=== PATIENT | female | born 1970 | race Asian ===

== ENCOUNTER → 2019-07-26 14:37 | Outpatient (CLI) | payer OTHER, SELFPAY ==
--- NOTE | ~2019-07-26 | XR_ITS ---
EXAMINATION: XR knee LT 3V DATE: 07/26/2019 14:47 INDICATION: Left knee pain. TECHNIQUE: 3 views of left knee were obtained. COMPARISON: None. FINDINGS: There is lateral subluxation of patella. No fracture. There is moderate osteoarthritis of p atellofemoral compartment and mild osteoarthritis of medial and lateral compartments. No knee joint e ffusion. IMPRESSION: 1. Moderate left knee osteoarthritis. Reviewed, dictated and finalized at location A.
== END ==
PROVIDERS: PCP Family Medicine; Visit Provider Physician Assistant
DX: M25.569 Pain in unspecified knee (principal); M17.12 Unilateral primary osteoarthritis, left knee
CPT/HCPCS: 73562

== ENCOUNTER 2019-08-01 13:07 | Outpatient (CLI) | payer OTHER, SELFPAY ==
--- NOTE | ~2019-08-01 | MM_ITS ---
EXAMINATION: MM screening violet BI w alma HISTORY: Screening mammogram TECHNIQUE: Craniocaudal and mediolateral oblique 3-D tomosynthesis images were obtained and synthetic 2-D images were generated. CAD analysis was submitted and interpreted. COMPARISON: Comparison to multiple prior studies sequentially, with oldest reviewed study dated 10/2013. BREAST PARENCHYMAL COMPOSITION: There are scattered areas of fibroglandular density. FINDINGS: Mass in the lower inner quadrant of the left breast is unchanged. There is no evidence of s uspicious mass, calcification, or architectural distortion to suggest malignancy in either breast. Th ere has been no suspicious interval change. IMPRESSION: 1. No mammographic evidence of malignancy. 2. Recommend routine screening mammography in one year. BI-RADS Category 2: Benign finding(s). Reviewed, dictated and finalized at location A.
== END 2019-08-01 13:08 | disposition home or self-care (01) ==
LOC: ANHIMG 13:12
PROVIDERS: PCP Family Medicine; Visit Provider Obstetrics & Gynecology Gynecology
DX: Z12.31 Encounter for screening mammogram for malignant neoplasm of breast (principal)
CPT/HCPCS: 77063; 77067

== ENCOUNTER 2020-08-02 08:04 | Outpatient (CLI) | payer OTHER, SELFPAY ==
--- NOTE | ~2020-08-02 | MM_ITS ---
EXAMINATION: MM screening violet BI w alma HISTORY: Screening TECHNIQUE: Craniocaudal and mediolateral oblique 3-D tomosynthesis images were obtained and synthetic 2-D images were generated. CAD analysis was submitted and interpreted. COMPARISON: Comparison to multiple prior studies sequentially, with oldest reviewed study dated 06/26. BREAST PARENCHYMAL COMPOSITION: There are scattered areas of fibroglandular density. FINDINGS: Stable benign-appearing left breast mass. There is no evidence of suspicious mass, calcific ation, or architectural distortion to suggest malignancy in either breast. There has been no suspicio us interval change. IMPRESSION: 1. No mammographic evidence of malignancy. 2. Recommend routine screening mammography in one year. BI-RADS Category 2: Benign finding(s). Reviewed, dictated and finalized at location A.
== END 2020-08-02 08:05 | disposition home or self-care (01) ==
LOC: ANHIMG 08:06
PROVIDERS: PCP Family Medicine; Visit Provider Obstetrics & Gynecology Gynecology
DX: Z12.31 Encounter for screening mammogram for malignant neoplasm of breast (principal)
CPT/HCPCS: 77063; 77067

== ENCOUNTER 2021-08-26 13:30 | Outpatient (CLI) | payer OTHER, SELFPAY ==
--- NOTE | ~2021-08-26 | MM_ITS ---
EXAMINATION: MM screening violet BI w alma HISTORY: Screening mammogram TECHNIQUE: Craniocaudal and mediolateral oblique 3-D tomosynthesis images were obtained and synthetic 2-D images were generated. CAD analysis was submitted and interpreted. COMPARISON: 08/02/2020, 08/01/2019, 07/25/2018 bilateral screening mammogram examinations BREAST PARENCHYMAL COMPOSITION: There are scattered areas of fibroglandular density. FINDINGS: Stable circumscribed up to 10.7 mm opacity with some calcifications in the posterior inner mid left breast, likely a partially calcified fibroadenoma, not significantly changed in size since . There is no evidence of suspicious mass, calcification, or architectural distortion to sugg est malignancy in either breast. There has been no suspicious interval change. IMPRESSION: 1. No mammographic evidence of malignancy. 2. Recommend routine screening mammography in one year. BI-RADS Category 2: Benign finding(s). Reviewed, dictated and finalized at location A.
== END 2021-08-26 13:31 | disposition home or self-care (01) ==
LOC: ANHIMG 13:32
PROVIDERS: PCP Family Medicine; Visit Provider Obstetrics & Gynecology Gynecology
DX: Z12.31 Encounter for screening mammogram for malignant neoplasm of breast (principal)
CPT/HCPCS: 77063; 77067

== ENCOUNTER 2022-09-29 09:05 | Outpatient (CLI) | payer OTHER, SELFPAY ==
--- NOTE | ~2022-09-29 | MM_ITS ---
EXAMINATION: MM screening violet BI w alma HISTORY: Screening mammogram, family history of breast cancer in her mother. TECHNIQUE: Craniocaudal and mediolateral oblique 3-D tomosynthesis images were obtained and synthetic 2-D images were generated. CAD analysis was submitted and interpreted. COMPARISON: 08/26/2021, 08/02/2020, 08/01/2019 BREAST PARENCHYMAL COMPOSITION: There are scattered areas of fibroglandular density. FINDINGS: A stable partially calcified mass of the inner left breast is consistent with a benign find ing. No suspicious mass, calcification, or architectural distortion are identified in either breast t o suggest malignancy. There has been no suspicious interval change. IMPRESSION: 1. No mammographic evidence of malignancy. 2. Recommend routine screening mammography in one year. BI-RADS Category 2: Benign finding(s). Reviewed, dictated and finalized at location A.
== END 2022-09-29 09:06 | disposition home or self-care (01) ==
PROVIDERS: PCP Family Medicine; Visit Provider Obstetrics & Gynecology Gynecology
DX: Z12.31 Encounter for screening mammogram for malignant neoplasm of breast (principal)
CPT/HCPCS: 77063; 77067

== ENCOUNTER 2023-07-05 00:17 | Day surgery (SDC) | payer OTHER, SELFPAY ==
[2023-06-29 14:13] VITALS: BMI 30.8
--- NOTE | 2023-06-29 14:50 | SUR.PREOP ---
Report to the Outpatient Waiting Room, entrance under the green pavilion located off [facility], at time 0930 on date 07/05/23. Planned Procedure Time: 1130. Time changes happen often and if your time is changed the preop area will call you the afternoon before. - You and your visitor will be asked to self-screen and do not enter if you have any COVID symptoms. - A mask is optional within the hospital at this time. Patients may have clear liquids (water, carbonated beverages, clear teas, apple juice) until 3 hours prior to surgery with a maximum of 20 ounces. - No food from midnight until time of surgery Take the following medications with a SIP of water the morning of surgery: N/A DO NOT STOP ANY OF YOUR OTHER PRESCRIPTION MEDICATIONS PRIOR TO SURGERY ?EXCEPT THE FOLLOWING Medications to discontinue per physician STOP ALL VIATAMINS AND SUPPLIMENTS 3 DAYS PRIOR TO PROCEDURE Date to take last dose 07/01/23 Please no make-up, nail yoruba, hairspray, perfume, deodorant, or body powder the day of surgery. No jewelry (including any body piercings) or valuables the day of surgery, leave them at home. Please take a shower or bath the night before, or the morning of, surgery with an antibacterial soap. Wear comfortable, loose fitting clothing. Children are encouraged to wear pajamas. - Jewelry must be removed prior to entering the operating room. Rings and piercings that are not removed may be cut off. - The hospital will not accept responsibility for valuables. - Please leave all valuables, including medications, at home the day of surgery. If you are going home after surgery, a licensed haul driver must drive you home. - NO public transportation without another adult if you receive anesthesia. - We recommend that an adult stay with you for 24 hours following discharge. - We also recommend that you do not drive, make important decision, drink alcoholic beverages, or take any drugs that were not prescribed by your health care provider for at least 24 hours after your discharge time. Follow any additional instructions given to you from your surgeon. If you or anyone in your household have experienced Covid symptoms in the past week, please notify your surgeon or the nurse liaison at the phone number below for possible testing. Telephone instructions given to MARGOTH HERNANDEZ and asked if any additional questions and then verbalized understanding. Patient advised to call surgeon office or pre surgery nurse liaison [phone] if any additional questions.
--- NOTE | 2023-07-05 08:10 | P.HP_ITS ---
History of Present Illness History of Present Illness Consent: Risks, benefits, and alternatives have been discussed and questions answered. Patient agrees to proceed with procedure. Chief complaint: post menopausal bleeding Narrative: Juana Cornejo is a 53 year old female with an episode postmenopausal bleeding. Options were discussed with the patient and she elected to proceed with hysteroscopy and declined ultrasound. Risks of infection, bleeding, perforat ion, and possible pathology are discussed. Patient voices understanding and agrees to proceed Review of Systems Review of Systems: not repeated day of surgery; patient states no changes in status PMFSH Past Medical History Medical History (Updated 07/05/23 @ 08:13 by Alison Rodríguez MD) (normal spontaneous vaginal delivery) x2 Surgical History Surgical History (Updated 07/05/23 @ 08:12 by Alison Rodríguez MD) History of D&C D and E for 14 week demise Family History Family History Mother Breast cancer Hypertension Father Hypertension Grandparent Hypertension Breast cancer Social History Social History Smoking status: Never smoker Second hand tobacco smoke exposure: No Alcohol intake: never Substance use: never Substance use type: does not use Living arrangements: with family Spiritual care concerns: No Agree to blood products: Yes Meds Home Medications and Allergies Home Medications Medication Instructions Recorded Confirmed Type cholecalciferol (vitamin D3) 125 125 mcg PO DAILY 11/28/20 06/29/23 History mcg (5,000 unit) capsule Allergies Allergy/AdvReac Type Severity Reaction Status Date / Time alcohol Allergy Unknown Rash Verified 06/29/23 15:11 ALCOHOL, YAMS, DUCK ,CRAB Allergy Unknown Itching Uncoded 06/29/23 15:11 Crab Allergy Unknown Unknown Uncoded 06/29/23 15:11 Exam Const: General: healthy appearing and alert Orientation/consciousness: patient oriented x3 Resp: Effort & Inspection: normal respiratory effort : External Female Exam: normal external appearance Speculum Exam - Vagina: normal appearance of the vagina and normal vaginal discharge Speculum Exam - Cervix: normal appearance of the cervix Bimanual exam- vagina & uterus: uterine size normal and consistency normal Bimanual Exam- Adnexa, other: normal adnexae and No adnexal tenderness Neuro: General: patient oriented x3 Assessment and Plan Assessment and plan (1) Post-menopausal bleeding: Code(s): N95.0 - Postmenopausal bleeding Status: Acute Assessment and Plan: plan to proceed with D&C hysteroscopy
--- NOTE | 2023-07-05 08:10 | WPDHPUPDATE1 ---
History and Physical Update Update Date/Time: 07/05/23 08:10 History and Physical has been reviewed, including an updated exam of the patient. There are NO changes in the patient's condition. Risks, benefits, and alternatives have been discussed and questions answered. Patient agrees to proceed with procedure.
[2023-07-05 09:04] VITALS: BP 148/97; PULSE 73; RESP 16; TEMP 36.9; O2SAT 98
[2023-07-05] MEDS: ACETAMINOPHEN 500 MG TABLET 1000 MG PO (09:14)
[2023-07-05] MEDS: LACTATED RINGERS 1,000 ML 30 ML IV CONT (09:24)
--- NOTE | 2023-07-05 09:40 | P.PNAN_ITS ---
Anes - Initial Pre Proc Eval Procedure: Operation Date: 07/05/23 10:45 Proposed Procedures p Hysteroscopy Dilation and Curettage - Alison Rodríguez MD Date/Time: 07/05/23 09:40 Surgeon: Alison Rodríguez MD Pre Op Diagnosis: post menopausal bleeding Patient Data Age: 53 Gender: F Height: 1.7 m Weight: 86.2 kg Last Vital Signs Temp 36.9 C 07/05/23 09:04 Pulse 73 07/05/23 09:04 Resp 16 07/05/23 09:04 BP 148/97 H 07/05/23 09:04 Pulse Ox 98 07/05/23 09:04 O2 Del Method Room Air 07/05/23 09:04 Allergies Allergy/AdvReac Type Severity Reaction Status Date / Time alcohol Allergy Unknown Rash Verified 07/05/23 09:04 ALCOHOL, YAMS, DUCK ,CRAB Allergy Unknown Itching Uncoded 07/05/23 09:04 Crab Allergy Unknown Unknown Uncoded 07/05/23 09:04 Home Medications Medication Instructions Recorded Confirmed Type cholecalciferol (vitamin D3) 125 125 mcg PO DAILY 11/28/20 06/29/23 History mcg (5,000 unit) capsule Patient hx anesthesia problems: none Family hx anesthesia problems: none Results Review: All pre-operative results and documents have been reviewed as part of the pre- operative evaluation. PMFSH Past Medical History Medical History (normal spontaneous vaginal delivery) x2 Surgical History Surgical History History of D&C D and E for 14 week demise Family History Family History Mother Breast cancer Hypertension Father Hypertension Grandparent Hypertension Breast cancer Social History Social History Smoking status: Never smoker Second hand tobacco smoke exposure: No Alcohol intake: never Substance use: never Substance use type: does not use Living arrangements: with family Spiritual care concerns: No Agree to blood products: Yes Anes - Eval Final PreProcedure Day of Procedure 07/05/23 09:41 Patient weight: overweight Heart: regular rate and rhythm Lungs: clear to auscultation Airway: Mallampati scale class II Neurological: alert and oriented Last oral intake: >/= 8 hours ASA classification: II Emergent: no Anesthetic plan: proceed Anesthesia type and monitoring: general GIVS and standard monitoring Results Review: All pre-operative results and documents have been reviewed as part of the pre- operative evaluation. Informed Consent: The patient's anesthetic plan and its attendant risks and benefits were discussed with the patient/family/POA. Questions were solicited and answers provided to the satisfaction of the patient/family/POA.
[2023-07-05 10:31] VITALS: BP 120/70; PULSE 69; RESP 12; O2SAT 100
--- NOTE | 2023-07-05 10:39 | P.OP_ITS ---
Procedure Note - Detailed Date of Procedure 07/05/23 Pre-op Diagnosis post menopausal bleeding Post-op Diagnosis Same Procedure Performed D&C hysteroscopy Surgeon Alison Rodríguez MD Anesthesia MAC Findings the uterus sounds to 8cm and appears grossly atrophic Description of Procedure The patient is taken to the operating room and placed under anesthesia in the dorsal lithotomy position. She was prepped and draped in the usual sterile fashion. [place] speculum was placed in the vagina and the cervix grasped on the anterior lip with a tenaculum. The uterus is sounded to 8cm and noted to be retroverted. The diagnostic hysteroscope was placed and with no abnormalities noted it is removed. The OO sharp curette is placed and the uterus sharply curetted until a good uterine cry was noted in all areas. Instruments are removed. The patient was awakened from anesthesia and taken to recovery in stable condition. Sponge, needle, and instrument counts are correct per the OR staff. Estimated Blood Loss 5 Drains No Packing No Pathology Yes ( Endometrial curettings) Complications No immediate complications Condition Stable Disposition PACU
[2023-07-05 11:00] VITALS: BP 123/80; PULSE 68; O2SAT 98
[2023-07-05 11:30] VITALS: BP 133/79; PULSE 68; RESP 20
[2023-07-05 11:50] VITALS: BP 132/80; PULSE 63; RESP 20
== END 2023-07-05 12:00 | disposition home or self-care (01) ==
PROVIDERS: PCP Family Medicine; Visit Provider Obstetrics & Gynecology Gynecology
PROC: 0U5B8ZZ Destruction of Endometrium, Via Natural or Artificial Opening Endoscopic (ICD-10-PCS; CPT 58563; principal; 2023-07-05 10:45)
DX: N95.0 Postmenopausal bleeding (principal)
CPT/HCPCS: 58558; 88305; A9270; J2250; J2704; J3010; J7120

== ENCOUNTER 2023-11-25 09:58 | Outpatient (CLI) | payer OTHER, SELFPAY ==
--- NOTE | ~2023-11-25 | MM_ITS ---
EXAMINATION: MM screening violet BI w alma HISTORY: Screening TECHNIQUE: Craniocaudal and mediolateral oblique 3-D tomosynthesis images were obtained and synthetic 2-D images were generated. CAD analysis was submitted and interpreted. COMPARISON: Comparison to multiple prior studies sequentially, with oldest reviewed study dated 12/2017. BREAST PARENCHYMAL COMPOSITION: Not dense: There are scattered areas of fibroglandular density. FINDINGS: There is no evidence of suspicious mass, calcification, or architectural distortion to sugg est malignancy in either breast. There has been no suspicious interval change. IMPRESSION: 1. No mammographic evidence of malignancy. 2. Recommend routine screening mammography in one year. BI-RADS Category 1: Negative Reviewed, dictated and finalized at location B.
== END 2023-11-25 09:59 | disposition home or self-care (01) ==
LOC: ANHIMG 09:59
PROVIDERS: PCP Family Medicine; Visit Provider Obstetrics & Gynecology Gynecology
DX: Z12.31 Encounter for screening mammogram for malignant neoplasm of breast (principal)
CPT/HCPCS: 77063; 77067

== ENCOUNTER 2023-12-22 11:51 | Outpatient (CLI) | payer OTHER, SELFPAY ==
--- NOTE | ~2023-12-22 | DEXA_ITS ---
Bone Density Report Name: MARGOTH HERNANDEZ Age: 53 Sex: Female Ethnicity: White Date of : 1970 Indication: postmenopausal; screening for osteoporosis; prior fracture; Referring Provider: MAYANK MARTINEZ Study: Bone densitometry was performed. Exam Date: December 22, 2023 Accession number: [id number] Bone Density: Region BMD T-score Z-score Classification AP Spine(L1-L4) 1.255 1.9 2.8 Normal Femoral Neck (Left) 0.867 0.2 1.1 Normal Total Hip (Left) 1.051 0.9 1.5 Normal Femoral Neck (Right) 0.873 0.2 1.1 Normal Total Hip (Right) 1.087 1.2 1.8 Normal Total Hip Mean 1.069 1.1 1.7 Normal World Health Organization criteria for BMD impression classify patients as: Normal (T-score at or above -1.0), Osteopenia (T-score between -1.0 and -2.5), or Osteoporosis (T-score at or below -2.5). 10-year Fracture Risk: FRAX not reported because: All T-scores for Spine Total, Hip Total, Femoral Neck at or above -1.0 Clinical Information Provided by Patient: Has had a low trauma fracture Patient maximum height was 67.0 No regular weight bearing exercise Onset of menses at age 13 Number of children 2 Impression: The patient has normal bone mass. The patient has risk factors, including: previous fracture. Discussion: BONE DENSITY IS ABOVE THE MINIMUM DESIRABLE LEVEL AT ALL SKELETAL SITES TESTED. This patient?s bone mineral density is above the minimum desirable level (T-score -1.0 or better) at all sites measured. The patient should follow a healthful lifestyle (good nutrition with adequate calcium and vitamin D, and appropriate weight-bearing exercise). Follow-Up: Consider repeating this study in 5 years or sooner if there is some new clinical indication. Reported by: SHERYL on 12/22/2023 12:22:00 PM. Reviewed, dictated and finalized at location ASy MARCANO
== END 2023-12-22 11:52 | disposition home or self-care (01) ==
PROVIDERS: PCP Family Medicine; Visit Provider Obstetrics & Gynecology Gynecology
DX: Z78.0 Asymptomatic menopausal state (principal)
CPT/HCPCS: 77080

== ENCOUNTER 2025-01-01 14:07 | Outpatient (CLI) | payer OTHER, SELFPAY ==
--- NOTE | ~2025-01-01 | MM_ITS ---
EXAMINATION: MM screening violet BI w alma HISTORY: Screening mammogram, family history of breast cancer in her mother. TECHNIQUE: Craniocaudal and mediolateral oblique 3-D tomosynthesis images were obtained and synthetic 2-D images were generated. CAD analysis was submitted and interpreted. COMPARISON: 11/25/2023, 09/29/2022, 08/26/2021 BREAST PARENCHYMAL COMPOSITION:Not Dense. There are scattered areas of fibroglandular density. FINDINGS: No suspicious mass, calcification, or architectural distortion are identified in either tulio ast to suggest malignancy. There has been no suspicious interval change. IMPRESSION: No mammographic evidence of malignancy. Recommend routine screening mammography in one year. BI-RADS Category 1: Negative Reviewed, dictated and finalized at location .
--- OUTSIDE RECORDS SUMMARY | 2025-01-01 15:12 | XMS_ITS | Clinical Summary ---
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 Role Phone April Swan MD Primary Care Provider [phone] Allergies No known active allergies Medications vitamin D3-vitamin K2 25 mcg (1,000 unit)-90 mcg tablet,disinteg rating Take by mouth Active progesterone (PROMETRIUM) 100 mg capsule Take 1 capsule (100 mg total) by mouth nightly 08/20/2024 Active Active Problems No known active problems Encounters Date Type Department Care Team Description 10/18/2024 8:00 AM CDT Office Visit [facility] Rheumatology [address] [place] [address] Medicine 5th [place] [address] [place] [address] Tracy Melvin MD Positive JUAN (antinuclear antibody) (Primary Dx); Hair loss; Arthralgia, unspecified joint from Last 3 Months Social History Tobacco Use Types Packs/Day Years Used Date Smoking Tobacco: Never Passive Smoke Exposure: Never Comments Unknown Sex and Gender Information Value Date Recorded Sex Assigned at Not on file Legal Sex Female 12:47 PM CDT Gender Identity Not on file Sexual Orientation Not on file Obstetrics History Last Filed Vital Signs Vital Sign Reading Time Taken Comments Blood Pressure 143/97 10/18/2024 8:07 AM CDT Pulse 73 10/18/2024 8:07 AM CDT Temperature 36.9 C (98.5 F) 10/18/2024 8:07 AM CDT Respiratory Rate 20 05/28/2023 8:09 AM MRI TECH Oxygen Saturation 97% 05/28/2023 8:09 AM MRI TECH Inhaled Oxygen Concentration - - Weight 85.3 kg (188 lb) 10/18/2024 8:07 AM CDT Height 170.2 cm (5' 7) 10/18/2024 8:07 AM CDT Body Mass Index 29.44 10/18/2024 8:07 AM CDT Plan of Treatment Health Maintenance Due Date Last Done Comments Breast Cancer Screening-Mammogram 1970 Cervical Cancer Screening 1971 Colon Cancer Screening-Colonoscopy 1971 Depression Screening 1971 Hepatitis C Screening 1971 DTaP/Tdap/Td Vaccine (1 - Tdap) 1982 Hepatitis B Screening 1989 Regular Well Visit/Exam 18-64 1989 Zoster Vaccine (1 of 2) 2021 Covid-19 Vaccine (4 - 2023-2 5 season) 2024 05/25/2021, 09/08/2020, 08/17/2020 Influenza Vaccine (#1) 2025 05/04/2023 Pneumococcal vaccine <65 Aged Out No longer eligible based on patient's age to complete this topic Insurance [facility] [address] [place] [address] [facility] [id number] Member Subscriber Plan / Payer (Ef fective 2021-Present) Name:Juana Cornejo Member ID:[id number] Relation to Subscriber:Self Name:Juana Cornejo Subscriber ID:[id number] Payer ID:[id number] Type:[employer] HMO/PPO Address: [employer] CLAIMS [address] [place] [id number] [place] [address] FORMERLY [facility], [facility] [id number] Member Subscriber Plan / Payer ( fective 2020-Present) Name:Juana Cornejo Member ID:[id number] Relation to Subscriber:Self Name:Juana Cornejo Subscriber ID:[id number] Payer ID:[id number] Type:[employer] HMO/PPO Address: [employer] CLAIMS [address] [place] [id number] Care Teams Cement Finishing Supervisor Relationship Specialty Start Date End Date April Swan MD PCP - General Family Medicine 12/29/21
--- OUTSIDE RECORDS SUMMARY | 2025-01-01 15:12 | XMS_ITS | Clinical Summary ---
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 Gender Identity Not on file Sexual Orientation Not on file Plan of Treatment Health Maintenance Due Date Last Done Comments DTAP/TDAP/TD VACCINES (1 - Tdap) 1990 HEPATITIS B VACCINES (1 of 3 - 19+ 3-dose series) 01/15 HPV/Cotest (21-29) 01/30/1992 CERVICAL CANCER SCREENING 2001 HPV/Cotest (30-65) 2001 PAP SMEAR 2001 BREAST CANCER SCREENING 2011 COLORECTAL SCREENING 01/30/2016 Colorectal Cancer Screening 01/30/2016 FIT-DNA Q 3 years 01/30/2016 FIT/FOBT Q 1 year 01/30/2016 Flex Sig/CT Colonography Q 5 years 01/30/2016 ZOSTER VACCINE (1 of 2) 2021 INFLUENZA VACCINE (#1) 2024 05/04/2023 Insurance RX [facility] [employer]
--- OUTSIDE RECORDS SUMMARY | 2025-01-01 15:12 | XMS_ITS | Clinical Summary ---
Author Organization [facility] Address [address] [place] [address] Care Team Providers Care Car Repairer Name Role Phone Unavailable Primary Care Provider Unavailabl e Source Comments [facility],non-owned Affiliates and Associated Physician Practices is amultiple site organization consisting of ambulatory clinics and hospital sitesin [place], [place], [place] and [place]. This disclosure is being madepursuant to the Care Everywhere program and may not contain all information available regarding this patient. Last updated 18.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 Gender Identity Not on file Sexual Orientation Not on file Plan of Treatment Health Maintenance Due Date Last Done Comments COLOGUARD (AGES 45-75) - COL ON CA SCREENING 1971 COLON MONITORING 1971 COLONOSCOPY - COLON CA SCREENING 1971 CT COLONOGRAPHY - COLON CA SCREENING 1971 Colorectal Cancer Screening 1971 FIT - COLON CA SCREENING 1971 FLEX SIG - COLON CA SCREENING 1971 LIPID TESTING 1971 MAMMOGRAM 1971 HIV SCREENING 1986 HEPATITIS C SCREENING 01/24/1989 DTAP/TDAP/TD VACCINES (1 - Tdap) 1990 HEPATITIS B VACCINE (1 of 3 - 19+ 3-dose series) 1990 PAP SMEAR 03/30/2020 03/30/2017 PNEUMOCOCCAL VACCINE 50+ (1 of 1 - PCV) 2021 ZOSTER VACCINE (1 of 2) 2021 COVID-19 VACCINE (1 - 2023-2 5 season) 2024 DEPRESSION SCREENING 05/17/2024 INFLUENZA VACCINE (#1) 2025 05/04/2023 HIB VACCINE Aged Out No longer eligi ble based on patient's age to complete this topic HPV VACCINE Aged Out No longer eligi ble based on patient's age to complete this topic MENINGOCOCCAL (Group B) VACC INE SHARED DECISION-MAKING Aged Out No longer eligibl e based on patient's age to complete this topic MENINGOCOCCAL GROUPS A/C/Y/W VACCINE Aged Out No longer eligible b ased on patient's age to complete this topic Insurance [facility] Address: [address] [address] SELF PAY NO INSURANCE Member Subscriber Plan / Payer (Ef fective for All Dates) Name:Juana Cornejo Member ID:Not on file Relation to Subscriber:Not on file Name:JUANA MCDONNELL Subscriber ID:Not on file (Home) Address: [facility] [place] [address] Payer ID:Not on file Group ID:Not on file Type:Self Pay Address: [place], [place] [facility] Address: [address] [address] SELF PAY NO INSURANCE Member Subscriber Plan / Payer (Ef fective for All Dates) Name:Clemente Ministeriokamala Angelika Member ID:Not on file Relation to Subscriber:Not on file Name:JUANA MCDONNELL Subscriber ID:Not on file (Home) Address: [address] [place], [place] [address] [address] Payer ID:Not on file Group ID:Not on file Type:Self Pay Address: [place], [place] [facility] Address: [facility] [id number] [place] [address] SELF PAY NO INSURANCE Member Subscriber Plan / Payer (Ef fective for All Dates) Name:Juana Cornejo Member ID:Not on file Relation to Subscriber:Not on file Name:JUANA MCDONNELL Subscriber ID:Not on file (Home) Address: [facility] [place] [address] Payer ID:Not on file Group ID:Not on file Type:Self Pay Address: [place], [place]
== END 2025-01-01 14:08 | disposition home or self-care (01) ==
PROVIDERS: PCP Family Medicine; Visit Provider Obstetrics & Gynecology Gynecology
DX: Z12.31 Encounter for screening mammogram for malignant neoplasm of breast (principal)
CPT/HCPCS: 77063; 77067

== ENCOUNTER 2025-04-11 13:56 | Outpatient (CLI) | payer OTHER, SELFPAY ==
--- NOTE | ~2025-04-11 | US_ITS ---
EXAMINATION: US transvaginal INDICATION: Postmenopausal bleeding Comparison:No prior studies for comparison. TECHNIQUE: Multiple transabdominal and endovaginal sonographic images of the pelvis performed. FINDINGS: The uterus measures 6.8 x 4.9 x 5.4 cm. There is a hyperechoic mass at the fundus of the uterus on the right measuring 2 cm, consistent with a fibroid. The endometrial complex measures 3. The right ovary measures 1.4 x 0.6 x 1.2 cm and the left ovary is not visualized. Normal doppler signal in the right ovary. There is no free fluid in the pelvis. There are no abnormal masses seen on either side. IMPRESSION: 1. Hyperechoic mass of the uterus at the fundus measuring 2.2 cm, compatible with a fibroid. Reviewed, dictated and finalized at location O. [employer] IMPRESSION: 1. Hyperechoic mass of the uterus at the fundus measuring 2.2 cm, compatible wi th a fibroid.
== END 2025-04-11 13:57 | disposition home or self-care (01) ==
LOC: MICIMG 13:57
PROVIDERS: PCP Student in an Organized Health Care Education/Training Program; Visit Provider Obstetrics & Gynecology Gynecology
DX: N85.8 Other specified noninflammatory disorders of uterus (principal); N95.0 Postmenopausal bleeding
CPT/HCPCS: 76830